=== PATIENT | female | born 1955 | race Caucasian/White ===

== ENCOUNTER → 2017-06-04 | Outpatient (CLI) | payer BC ==
--- NOTE | 2017-06-04 17:06 | REPMRS ---
Patient History Patient is postmenopausal and has history of high-risk lesion on a previous biopsy at age 45. Family history of breast cancer in mother at age 73, breast cancer in paternal aunt at age 53, and breast cancer in maternal aunt at age 30. Took hormonal contraceptives for 2 years. Taking estrogen for 12 years. Digital Mammo Screening Bilat: June 04, 2017 - Exam #: [id number] Bilateral CC and MLO view(s) were taken. Technologist: Aurora Rondon, Technologist Prior study comparison: May 29, 2016, bilateral digital mammo screening bilat performed at [facility]. May 28, 2015, bilateral digital mammo screening bilat performed at [facility]. May 21, 2014, bilateral digital mammo screening bilat performed at [facility]. FINDINGS: There are scattered fibroglandular densities. There has been no change in the appearance of the mammogram from the prior studies. There is a mild amount of residual fibroglandular tissue which is fairly symmetric. There is no interval development of dominant mass, architectural distortion, or clustered microcalcification suggestive of malignancy. Large coarse benign appearing calcifications are present. Scattered lymph nodes are seen in the axillae. No significant changes when compared with prior studies. ASSESSMENT: BI-RADS/ACR category 2 mammogram. Benign finding(s). Recommendation Routine screening mammogram in 1 year (for women over age 40). This mammogram was interpreted with the aid of an FDA-approved computer-aided dectection system. A. Negative x-ray reports should not delay biopsy if a dominant or clinically suspicious mass is present. B. Four to eight percent of cancers are not identified by mammography. C. Adenosis and dense breast may obscure an underlying neoplasm. Electronically Signed By: Guru Hassan MD 06/04/17 0544
== END ==
LOC: M RAD 15:17
PROVIDERS: ATTEND Internal Medicine
DX: Z12.31 Encounter for screening mammogram for malignant neoplasm of breast (principal); Z78.0 Asymptomatic menopausal state; Z80.3 Family history of malignant neoplasm of breast; Z92.0 Personal history of contraception

== ENCOUNTER → 2017-11-09 | Outpatient (CLI) | payer BC ==
[2017-11-09 11:00] LABS: COLLAGEN EPINEPHRINE > 300 SECONDS (74-162)
[2017-11-09 11:08] LABS: COLLAGEN ADP 131 SECONDS (56-103)
== END ==
LOC: M LAB 10:13
DX: H02.423 Myogenic ptosis of bilateral eyelids (principal)
CPT/HCPCS: 36415

== ENCOUNTER → 2017-11-16 | Outpatient (CLI) | payer BC ==
[2017-11-16 15:13] LABS: COLLAGEN EPINEPHRINE 168 SECONDS (74-162)
[2017-11-16 15:46] LABS: COLLAGEN ADP 156 SECONDS (56-103)
== END ==
LOC: M LAB 14:17
DX: H02.423 Myogenic ptosis of bilateral eyelids (principal)
CPT/HCPCS: 36415

== ENCOUNTER → 2018-06-09 | Outpatient (CLI) | payer BC | LOC: M RAD 16:51 | DX: Z12.31 Encounter for screening mammogram for malignant neoplasm of breast (principal); Z92.0 Personal history of contraception; Z92.23 Personal history of estrogen therapy; Z80.3 Family history of malignant neoplasm of breast | CPT/HCPCS: 77067 ==

== ENCOUNTER → 2019-06-12 | Outpatient (CLI) | payer BC ==
--- NOTE | 2019-06-12 14:33 | REPMRS ---
Patient History The patient states she had a clinical breast exam in November 2018. Family history of breast cancer at age 73 in mother, breast cancer at age 53 in paternal aunt, breast cancer at age 30 in maternal aunt. Took hormonal contraceptives for 2 years. Took estrogen for 12 years. Digital Mammo Screening Bilat: June 12, 2019 - Exam #: [id number] Bilateral CC and MLO view(s) were taken. Technologist: Vanessa Jimenez Technologist Prior study comparison: June 09, 2018, bilateral digital mammo screening bilat performed at [facility]. June 04, 2017, bilateral digital mammo screening bilat performed at [facility]. May 29, 2016, bilateral digital mammo screening bilat performed at [facility]. FINDINGS: There are scattered fibroglandular densities. There has been no change in the appearance of the mammogram from the prior studies. There is a mild amount of scattered fibroglandular density which is fairly symmetric. There is no interval development of dominant mass, architectural distortion, or grouped microcalcification suggestive of malignancy. 3-D tomosynthesis shows no additional findings. Assessment: BI-RADS/ACR category 1 mammogram. Negative Mammogram. Recommendation Routine screening mammogram of both breasts in 1 year (for women over age 40). This patient's Lifetime Breast Cancer Risk is estimated at 18.1 %. This mammogram was interpreted with the aid of an FDA-approved computer-aided dectection system. Electronically Signed By: Ahmet Castro MD 06/12/19 [id number]
== END ==
LOC: M RAD 13:47
PROVIDERS: ATTEND Internal Medicine
DX: Z12.31 Encounter for screening mammogram for malignant neoplasm of breast (principal); Z80.3 Family history of malignant neoplasm of breast; Z92.0 Personal history of contraception

== ENCOUNTER → 2020-06-14 | Outpatient (CLI) | payer OTHER ==
--- NOTE | 2020-06-14 16:24 | REPMRS ---
Patient History The patient states she had a clinical breast exam in 12/2019 Family history of breast cancer at age 73 in mother, breast cancer at age 53 in paternal aunt, breast cancer at age 30 in maternal aunt. Took hormonal contraceptives for 2 years. Took estrogen for 12 years. Digital Woman Screen Mammo: June 14, 2020 - Exam #: [id number] Bilateral CC and MLO view(s) were taken. Technologist: Irais Escamilla, Technologist Prior study comparison: June 12, 2019, bilateral digital mammo screening bilat, performed at [facility]. June 09, 2018, bilateral digital mammo screening bilat, performed at [facility]. June 04, 2017, bilateral digital mammo screening bilat, performed at [facility]. FINDINGS: The breast tissue is almost entirely fat. The Volpara volumetric breast density category is: A. There has been no change in the appearance of the mammogram from the prior studies. There is no interval development of dominant mass, architectural distortion, or grouped microcalcification typical of malignancy. 3-D tomosynthesis shows no additional findings. Assessment: BI-RADS/ACR category 1 mammogram. Negative Mammogram. Recommendation Routine screening mammogram of both breasts in 1 year (for women over age 40). This patient's [facility] Lifetime Breast Cancer RIsk is estimated at 17.4 %. This mammogram was interpreted with the aid of an FDA-approved computer-aided dectection system. Electronically Signed By: Ahmet Castro MD 06/14/20 1350
== END ==
LOC: M WHC 15:42
PROVIDERS: ATTEND Internal Medicine
DX: Z12.31 Encounter for screening mammogram for malignant neoplasm of breast (principal)

== ENCOUNTER → 2021-07-24 | Outpatient (CLI) | payer OTHER | LOC: M WHC 14:18 | PROVIDERS: ATTEND Internal Medicine | DX: Z12.31 Encounter for screening mammogram for malignant neoplasm of breast (principal); Z78.0 Asymptomatic menopausal state; Z80.3 Family history of malignant neoplasm of breast ==

== ENCOUNTER → 2022-07-29 | Outpatient (CLI) | payer BC, MEDICARE | LOC: M WHC 10:25 | PROVIDERS: ATTEND Internal Medicine | DX: Z12.31 Encounter for screening mammogram for malignant neoplasm of breast (principal) ==

== ENCOUNTER → 2023-07-28 | Outpatient (CLI) | payer MEDICARE ==
[~2023-07-28] MED LIST: ISOVUE-300 61% 100ML VIAL As Ordered ONE; LIDOCAINE 1% MDV 20ML VIAL As Ordered ONE; methylPREDNISolone SUSP 40MG/ML 1ML VIAL (DEPO MEDROL) As Ordered ONE
== END ==
LOC: M RAD 10:25
PROVIDERS: ATTEND Physician Assistant
DX: M16.12 Unilateral primary osteoarthritis, left hip (principal)
CPT/HCPCS: 20610; 77002; J1030; Q9967

== ENCOUNTER → 2023-07-30 | Outpatient (CLI) | payer MEDICARE | LOC: M WHC 14:53 | PROVIDERS: ATTEND Internal Medicine | DX: Z12.31 Encounter for screening mammogram for malignant neoplasm of breast (principal) ==

== ENCOUNTER → 2023-11-16 | Outpatient (CLI) | payer MEDICARE | LOC: M RAD 13:20 | PROVIDERS: ATTEND Physician Assistant | DX: M16.12 Unilateral primary osteoarthritis, left hip (principal) | CPT/HCPCS: 20610; 77002; J1010; Q9967 ==

== ENCOUNTER → 2024-07-31 | Outpatient (CLI) | payer MEDICARE | LOC: M WHC 15:31 | PROVIDERS: ATTEND Internal Medicine | DX: Z12.31 Encounter for screening mammogram for malignant neoplasm of breast (principal) ==